=== PATIENT | male | born 1950 | race African-American/Black ===

== ENCOUNTER 2024-08-01 13:02 | Emergency (ER) | payer OTHER ==
[~2024-08-01] VITALS: Ht 182.9 cm; Wt 73.0 kg
[2024-08-01 13:08] VITALS: O2SAT 98
[2024-08-01 16:15] VITALS: BP 170/69; PULSE 70; RESP 16; TEMP 36.8; O2SAT 99
== END 2024-08-01 16:16 | disposition home or self-care (01) ==
LOC: ER 13:02
DX: S00.03XA Contusion of scalp, initial encounter (principal); F03.92 Unspecified dementia, unspecified severity, with psychotic disturbance; W01.0XXA Fall on same level from slipping, tripping and stumbling without subsequent striking against object, initial encounter; Y93.89 Activity, other specified; Y92.89 Other specified places as the place of occurrence of the external cause; Y99.8 Other external cause status
CPT/HCPCS: 99284